=== PATIENT | female | born 1945 | race Caucasian/White ===

== ENCOUNTER 2021-11-27 05:36 | Observation (INO) | payer OTHER ==
[2021-11-22 10:12] LABS: Urine Appearance CLEAR (Clear); Urine Bilirubin NEGATIVE (Negative); Urine Blood 1+ (Negative); Urine Color YELLOW (Yellow); Urine Glucose NEGATIVE (Negative); Urine Protein NEGATIVE (Negative); Urine Specific Gravity 1.015 (1.005-1.030); Urine Urobilinogen 0.2 mg/dL (0.2-1.0)
[2021-11-22 10:19] LABS: Urine Bacteria <20 /HPF (<20); Urine Microscopic Reflex ORDER UMIC
[2021-11-23 11:12] LABS: Protime INR 1.04
[2021-11-27] MEDS ORDERED: Ringers Lactate 1,000 ML IV ONE (05:59)
[2021-11-27] MEDS ORDERED: GABAPENTIN 100 MG CAP ONE (06:01)
[2021-11-27] MEDS ORDERED: ACETAMINOPHEN 500 MG TAB ONE (06:01)
[2021-11-27] MEDS ORDERED: Oxycodone HCl/Acetaminophen 1 TAB TAB ONE (06:01)
[2021-11-27] MEDS ORDERED: CELECOXIB 100 MG CAPSULE ONE (06:01)
[2021-11-27 06:33] LABS: Absolute Lymphocytes (CBC) 1.6 K/uL (0.7-4.9); Hematocrit 34.3 % (36.0-45.0); Lymphocytes % 28.5 % (15.3-44.8); MPV 6.7 fL (7.6-11.3); RBC Red Blood Cell Count 3.67 M/uL (3.86-4.86)
[2021-11-27] MEDS ORDERED: EPINEPHRINE/PF 1 MG/ML AMP ONE (06:38)
[2021-11-27] MEDS ORDERED: ROPIVACAINE HCL 40 ML ONE (06:39)
[2021-11-27] MEDS ORDERED: LIDOCAINE 2% MPF 5 ML VIAL ONE (06:43)
[2021-11-27] MEDS ORDERED: ROCURONIUM 50 MG/5 ML VIAL IV ONE (06:43)
[2021-11-27] MEDS ORDERED: FENTANYL CITR 100 MCG/2 ML ONE (06:43)
[2021-11-27] MEDS ORDERED: propofoL 200 MG/20 ML VIAL IV ONE (06:43)
[2021-11-27] MEDS ORDERED: dexAMETHasone 10 MG/ML VIAL ONE (06:43)
[2021-11-27] MEDS ORDERED: KETOROLAC 30 MG/ML INJ ONE (06:43)
[2021-11-27] MEDS ORDERED: ONDANSETRON 4 MG/2 ML VIAL ONE (06:44)
[2021-11-27] MEDS ORDERED: KETAMINE HCL 500 MG/5 ML VIAL ONE (06:44)
[2021-11-27 06:48] LABS: Albumin 3.6 g/dL (3.4-5.0); Bilirubin Total 0.2 mg/dL (0.2-1.0); Potassium 3.9 mmol/L (3.5-5.1); Protein, Total 6.5 g/dL (6.4-8.2)
[2021-11-27] MEDS ORDERED: Oxycodone HCl/Acetaminophen 1 TAB TAB PO SCH (07:00)
[2021-11-27] MEDS ORDERED: GABAPENTIN 300 MG CAP PO SCH (07:00)
[2021-11-27] MEDS ORDERED: CELECOXIB 100 MG CAPSULE PO SCH (07:00)
[2021-11-27] MEDS ORDERED: CEFAZOLIN 2 GM IN 0.9% NACL 2 GM/100 ML BAG IV SCH (07:00)
[2021-11-27] MEDS ORDERED: TRANEXAMIC ACID 1,000 MG in NA CHLORIDE 0.9% 50 ML IV SCH (07:00)
[2021-11-27] MEDS ORDERED: CEFAZOLIN SODIUM 1 GM/VIAL ONE (07:51)
[2021-11-27] MEDS ORDERED: TRANEXAMIC ACID 1,000 MG/10 ML VIAL IV ONE ×2 (08:13→08:14)
[2021-11-27] MEDS ORDERED: Phenylephrine HCl 10 MG/ML 1 ML VIAL ONE (08:42)
[2021-11-27] MEDS ORDERED: NS 0.9% VIAL 20 ML ONE (08:43)
--- NOTE | 2021-11-27 08:58 | RAD REPORT ---
EXAM DESCRIPTION: RAD - Hip Right 1 View - 11/27/2021 8:47 am CLINICAL HISTORY: RT TOTAL HIP REPLACEMENT COMPARISON: Hip Right 2 View dated 09/14/2021 FINDINGS/IMPRESSION: Single intraoperative radiograph of the pelvis centered over the right hip. Rig ht hip arthroplasty intact. The hip arthroplasty is only partially imaged. No fractures seen.
[2021-11-27] MEDS ORDERED: ONDANSETRON 4 MG/2 ML VIAL IV PRN (09:19)
[2021-11-27] MEDS ORDERED: DOCUSATE NA 100 MG CAP PO PRN (09:19)
--- NOTE | 2021-11-27 09:19 | P.BOP ---
Preoperative diagnosis: right hip djd Postoperative diagnosis: same Primary procedure: right nicole Estimated blood loss: 100 ccs Specimen: sent Anesthesia: General Complications: None Transferred to: Recovery Room Condition: Good
--- OUTSIDE RECORDS SUMMARY | 2021-11-27 10:24 | XMS REPORT | Continuity of Care Document ---
:1945 Author Organization [facility] t Address [address] [place] [place] [address] Care Team Providers Name Role Phone RAMON PETERSON Attending Clinician Unavailable Pob, Lab Main Attending Clinician Unavailable Rl Peterson MD Attending Clinician Doctor Unassigned, Name Attending Clinician Unavailable Rl PETERSON Admitting Clinician Unavailable Payers Payer Name Policy Type Policy Number Effective Date Expiration Date S inderjit BEARD PLS [id number] 2019 00:00:00 HMO Problems This patient has no known problems. Allergies, Adverse Reactions, Alerts Allergy Allergy Status Severity Reaction(s) Onset Inactive Treating Comm ents Source Name Type Date Date Clinician NO KNOWN Drug Active [facility] ALLERGIE Class it of [facility] Social History Social Habit Start Date Stop Date Quantity Comments [facility] to SARS-[facility]-2 Not sure [facility] [place] [facility] Smoking Status Start Date Stop Date Source Unknown if ever smoked [facility] Medications This patient has no known medications. Procedures Procedure Date / Time Performed Performing Clinician [facility] e ASSIGNMENT OF BENEFITS 2020-04-17 16:58:32 Doctor Unassigned, No [facility] Encounters Start End Encounter Admission Attending Care Care Encounter Source Date/Time Date/Time Type Type Clinicians Facility Department ID 2021-04-28 Outpatient R STAN [facility] [place] [id number] Univers 00:26:53 RAMON [facility] 2020-04-25 2020-04-25 Outpatient R [facility] [id number] Univers 14:30:00 14:30:00 [id number] [facility] 2020-04-17 2020-04-17 [facility] [id number] Univers 12:15:00 12:15:00 RAMON [facility] 2020-04-17 2020-04-17 Associate Designer Jackie, Tawnya Lab Main [facility] [id number] Univers 11:57:27 12:12:27 Visit Ramon Peterson [id number] 0 [facility] [phone] [place] [address] 2020-04-17 2020-04-17 Orders Doctor KASHIF [id number] Univers 00:00:00 00:00:00 Only Unassigned, SOLITARIO [id number] ity of [place] [facility] [id number] Jake as [phone] [place] [address] Branch Results This patient has no known results.
[2021-11-27 11:24] LABS: Hematocrit 32.2 % (36.0-45.0)
[2021-11-27] MEDS: HYDROCODONE/APAP 7.5/325 MG TAB PO PRN ×2 (11:54→20:37)
[2021-11-27] MEDS: CEFAZOLIN 1 GM in NA CHLORIDE 0.9% 50 ML IVPB SCH ×3 (11:57→23:06)
[2021-11-27 12:17] VITALS: BMI 19.1
[2021-11-27] MEDS: ONDANSETRON 4 MG/2 ML VIAL IV PRN (13:26)
[2021-11-27 17:41] LABS: Hematocrit 34.7 % (36.0-45.0)
--- NOTE | 2021-11-27 18:10 | P.CNS ---
Date of Consult: 11/27/21 Reason for Consult: Medical Management Requesting Physician: Doyle Staples Chief Complaint: Right total hip Allergies No Known Allergies Allergy (Verified 11/27/21 07:20) Home Medications: Acetaminophen [Tylenol Arthritis] 1 tab PO BID 11/22/21 Cholecalciferol (Vitamin D3) [D3-50] 1 tab PO DAILY 11/22/21 Enalapril [Vasotec*] 1 tab PO DAILY 11/22/21 Latanoprost/Pf [Latanoprost 0.005% Eye Drop] 1 drop EACH EYE BEDTIME 11/22/21 Levothyroxine [Synthroid*] 1 tab PO DAILY 11/22/21 [place]-3S/Dha/Epa/Fish Oil [Fish Oil 1,200 mg Softgel] 1 tab PO DAILY 11/22/21 Zinc 1 tab PO DAILY 11/22/21 - Past Medical/Surgical History Diabetic: No -: HTN -: cataracts surgery -: cyst removed from pancreas -: gallbladder removed -: hemorrhoid surgery - Family History Mother Medical History: Heart disease - Social History Alcohol use: Yes CD- Drugs: No Caffeine use: Yes Place of Residence: Home Review of Systems 10-point ROS is otherwise unremarkable Physical Examination Temp Pulse Resp BP Pulse Ox 97.6 F 86 16 153/76 H 93 11/27/21 16:00 11/27/21 16:00 11/27/21 16:00 11/27/21 16:00 11/27/21 16:00 General: Alert, In no apparent distress HEENT: Atraumatic, PERRLA, Mucous membr. moist/pink, EOMI, Sclerae nonicteric Neck: Supple, 2+ carotid pulse no bruit, No LAD, Without JVD or thyroid abnormality Respiratory: Clear to auscultation bilaterally, Normal air movement Cardiovascular: Regular rate/rhythm, Normal S1 S2 Gastrointestinal: Normal bowel sounds, No tenderness Musculoskeletal: Swelling, Erythema, Tenderness Integumentary: No rashes Neurological: Normal gait, Normal speech, Normal tone, Normal affect Lymphatics: No axilla or inguinal lymphadenopathy Laboratory Data (last 24 hrs) 11/27/21 17:24: Hgb 11.3 L, Hct 34.7 L 11/27/21 10:46: Hgb 10.7 L, Hct 32.2 L 11/27/21 06:24: Sodium 141, Potassium 3.9, BUN 14, Creatinine 0.55, Glucose 113 H, Total Bilirubin 0.2, AST 15, ALT 20, Alkaline Phosphatase 75 11/27/21 06:24: WBC 5.4, Hgb 11.7 L, Hct 34.3 L, Plt Count 229 - Problems (1) S/P total right hip arthroplasty Current Visit: Yes Status: Acute
--- NOTE | 2021-11-27 19:49 | OP ---
Date of Procedure: 11/27/2021 Surgeon: Doyle Staples MD Postoperative Diagnosis: Severe right hip arthritis. Postoperative Diagnosis: Severe right hip arthritis. Procedure: Right total hip arthroplasty using the Krystian system. Estimated Blood Loss: 100 cc. Complications: There were no complications. Specimen: There was a pathology specimen sent. Indication For Operation: Ms. Dodd is a 76-year-old female who has unfortunately been troubled s ignificantly with her right hip for some time. X-rays demonstrate near destruction of the hip joint itself with superior migration and subluxation. This is constantly painful and limits her in her act ivities of daily living. Risks, benefits, and alternatives of different methods of treatment have be en discussed, and at this time, we will proceed with total hip arthroplasty on the right. All risks, benefits, and alternatives to that were again discussed. She states she understands things as prese nted and wishes to proceed. Description Of Procedure: The patient was taken to the operating room and placed in supine position. General anesthesia was obtained by staff. Following this, she was then rolled left-sided down with all her bony prominences being checked. She was appropriately positioned using hip positioner. Her right lower extremity was then prepped and draped in usual sterile fashion for arthroplasty. Follow ing this, a standard posterolateral incision was taken down carefully through skin only, meticulous h emostasis being maintained using Bovie electrocautery. This led down to the fascia and a small stab wound was made in the fascia. The gluteal tendon was palpated to ensure we were at the correct posit ion and was then brought gently up until near the tip of the greater trochanter where the fibers of t he gluteus chris were encountered. The area was then spread using finger pressure. The sciatic ne rve was palpated and the Charnley was placed. There was very abundant bursal tissue and this was alice ed up, and there appeared to be a lobular cyst-like structure, which appeared to be protruding in the region of the external rotators. This did not appear to be infected and was definitely not adhered, more or less appeared to be a walled cyst. It was then elevated and excised using the Bovie with li beration of some rather normal-appearing fluid and will be sent to pathology. Following this, attent ion was then turned back to the hip, and the external rotators and capsule were then taken down teddy cote as a unit and tagged for later repair, care being taken to protect the sciatic nerve. After thi s, there was abundant synovium as well as osteophytes at the posterior superior rim. These were gent ly debrided and the hip was then dislocated. A slightly shorter than standard neck cut was then perf ormed and the head was then sized using ring gauges. After this, the soft tissue was removed from th e acetabulum and the retractors were carefully placed. More labral tissue was then removed along the rim as well as some further osteophytes. It is obvious that the wear is mostly anterior and superio r. As the patient is somewhat osteoporotic in 76, care was taken not to aggressively ream at this po int and the initial reamer was made to help find the true center of the acetabulum near the area of t he fossa; however, this was not taken down completely to face this area as there was concern about th e anterior structures. After then, it was then sequentially reamed to a size 49. This was necessary to obtain good bleeding bone throughout and avoid rocking. It is a little oversized for her; ryan r, I do not think much if at all. After this, the size 50 cup was then placed and hammere d into place well being overly aggressive. It appeared to stick extremely well with no sign of rocki ng or motion. Attention was then turned to the femur and a corrugated box machine operator was then used to lateralize qu ite a bit. The canal-finding reamer was then used followed by broaching. We could broach up to a si ze 2, found to have a good fit and do not really think we would place a larger stem. X-rays were the n taken at that time, which demonstrated cup in an expected position, however, not quite completely d own. The stem was not completely visualized, but I do not think we could place a larger stem. Kimmy card was made to move forward with this. A ball impactor was then used to impact the cup slightly mor e stressing the more inferior aspect. This was followed by placement of the liner. The size 2 stem was then placed and appeared to have very good fit with no shuck with rotation. It was then trialed with a size 0 and relocated. It was stable to greater than 90 degrees of flexion, full adduction, an d internal rotation to at least 45 degrees. It came to full extension and there was no lateral or in ferior shuck and did not appear to be overly tight, but we were going to tighten this up a little bit as it had a significant amount of shortening preoperatively. This was decided as the final ball and the final ball was then tapped gently into place. All soft tissue structures were cleared. It was then relocated and it was found to be stable in the exact same parameters. Jet lavage was used and f urther Bovie if needed for any bleeding, and the external rotators and capsule were then repaired marii k to the greater trochanter via bone tunnels. This was again irrigated and the fascia was closed usi ng Vicryl sutures. This was again irrigated and the skin was closed using Vicryl sutures followed by von. The patient was then placed in Aquacel dressing, awakened, and taken to recovery room in g ood condition. There were no complications. /ANN Voice ID: [id number] Report ID: [id number]
[2021-11-28] MEDS: HYDROCODONE/APAP 7.5/325 MG TAB PO PRN ×4 (03:36→21:22)
[2021-11-28 04:12] LABS: Hematocrit 33.3 % (36.0-45.0)
[2021-11-28 04:31] LABS: Potassium 4.2 mmol/L (3.5-5.1)
[2021-11-28] MEDS: ENOXAPARIN 40 MG/0.4 ML SQ SCH (08:36)
[2021-11-28] MEDS: ONDANSETRON 4 MG/2 ML VIAL IV PRN (08:36)
[2021-11-28] MEDS ORDERED: NA CHLORIDE 0.9% 250 ML IV ONE (11:32)
[2021-11-28] MEDS ORDERED: METOPROLOL TAR 25 MG TAB PO ONE (11:32)
[2021-11-28 17:05] VITALS: O2SAT 98
[2021-11-28] MEDS ORDERED: HOME MED 1 EA UNK (Latanoprost/Pf [Latanoprost 0.005% Eye Drop] 7.5 ML Drops) OPTH SCH (21:00)
[2021-11-28] MEDS ORDERED: EYE OPTH SCH (21:00)
[2021-11-28] MEDS ORDERED: HOME MED 1 EA UNK (Acetaminophen [Tylenol Arthritis] 650 MG Tablet.Er) PO SCH (21:00)
[2021-11-28] MEDS ORDERED: LATANOPROST OPTH SCH (21:00)
[2021-11-29 06:19] LABS: Hematocrit 29.7 % (36.0-45.0)
[2021-11-29] MEDS: HYDROCODONE/APAP 7.5/325 MG TAB PO PRN (06:20)
[2021-11-29] MEDS ORDERED: LEVOTHYROXINE SOD 0.1 MG TAB PO SCH (06:30)
[2021-11-29 07:07] LABS: Potassium 3.7 mmol/L (3.5-5.1)
[2021-11-29] MEDS ORDERED: HOME MED 1 EA UNK (Cholecalciferol (Vitamin D3) [D3-50] 1,250 MCG Capsule) PO SCH (09:00)
[2021-11-29] MEDS ORDERED: VITAMIN D 5,000 UNIT CAP PO SCH (09:00)
[2021-11-29] MEDS ORDERED: ZINC SULFATE 220 MG CAP PO SCH (09:00)
[2021-11-29] MEDS ORDERED: DOCOSAHEXANOIC AC/EPA 1000 MG PO SCH (09:00)
[2021-11-29] MEDS ORDERED: ENALAPRIL 10 MG TAB PO SCH (09:00)
[2021-11-29] MEDS: ENOXAPARIN 40 MG/0.4 ML SQ SCH (09:32)
[2021-11-29 13:19] VITALS: BP 132/63; TEMP 98.2
== END 2021-11-29 12:24 | disposition home health service (06) ==
LOC: OR 05:36 → 2ND 10:21
PROVIDERS: ADMIT Orthopaedic Surgery; ATTEND Orthopaedic Surgery
PROC: 0SR90JA Replacement of Right Hip Joint with Synthetic Substitute, Uncemented, Open Approach (ICD-10-PCS; principal; 2021-11-27 07:00)
DX: M16.11 Unilateral primary osteoarthritis, right hip (principal); I10 Essential (primary) hypertension; H40.9 Unspecified glaucoma; E03.9 Hypothyroidism, unspecified; Z96.642 Presence of left artificial hip joint; Z79.899 Other long term (current) drug therapy; Z87.891 Personal history of nicotine dependence; Z90.49 Acquired absence of other specified parts of digestive tract; Z20.822 Contact with and (suspected) exposure to COVID-19; Z82.49 Family history of ischemic heart disease and other diseases of the circulatory system
CPT/HCPCS: 36415; 80048; 80053; 81003; 81015; 85014; 85018; 85025; 85610; 85730; 86850; 86900; 86901; 88304; 88305; 88311; 97110; 97116; 97161; 97530; C1776; G0378; G0379; J0171; J0690; J1100; J1650; J2370; J2405; J2704; J3010; J7050; J7120; U0002